=== PATIENT | male | born 1945 | race American Indian/Alaskan Native ===

== ENCOUNTER 2016-08-04 13:22 | Emergency (ER) | payer MEDICARE ==
--- NOTE | 2016-08-04 15:24 | XRay Report ---
LEFT HUMERUS: AP and lateral views of the humerus demonstrate normal mineralization and contours for this patient's age. No destructive changes are noted and the adjacent soft tissues are normal. Posterior dislocation of the left elbow is suspected and partially imaged. IMPRESSION: Normal left humerus. Dislocated left elbow.
--- NOTE | 2016-08-04 15:24 | XRay Report ---
LEFT SHOULDER: History: Shoulder pain. Routine views demonstrate normal bony and soft tissue structures with normal joint alignment of the shoulder. IMPRESSION: Normal study.
--- NOTE | 2016-08-04 15:25 | XRay Report ---
LEFT ELBOW, 3 views: History: Dislocation, pain The bony architecture is intact without evidence of fracture or dislocation. No significant soft tissue abnormality is seen. The posterior dislocation has been reduced. IMPRESSION: Anatomic alignment of the left elbow.
[2016-08-04] MEDS ORDERED: NORCO 5/325 PO ONE (16:35)
[2016-08-04] MEDS ORDERED: FLEXERIL PO ONE (16:39)
--- NOTE | 2016-08-04 16:39 | Emergency Department Report ---
ED Upper Extremity Inj HPI - General Chief Complaint: Fall Stated Complaint: FALL Time Seen by Provider: 08/04/16 16:12 Source: patient Mode of arrival: Ambulatory Limitations: No Limitations - History of Present Illness Initial Comments: 70-year-old male presents to the stating that he may have dislocated his arm. Patient states that he slipped and fell in the yard, breaking his fall with arm. Denies any fever, chills, nausea, vomiting, chest pain, shortness of breath, abdominal pain. Denies numbness, weakness, paresthesias. Denies history of surgeries or injuries to left arm. Patient describes his pain as 8 out of 10 and states he is unable to flex. MD Complaint: Injury to:: left, elbow -: Sudden Other Extremity Injury: Elbow: Left, Arm: Left, Forearm: Left Other Injuries: none Handedness: right Place: home, outdoors Severity scale (0 -10): 8 Improves With: none Worsens With: movement of extremity Context: fall Associated Symptoms: denies: weakness, numbness, neck pain, nausea/vomiting - Related Data Previous Rx's Medication Instructions Recorded Last Taken Type Acetaminophen/Codeine [Tylenol 1 tab PO Q6H PRN #24 tab 08/04/16 Unknown Rx /Codeine # 3 tab] Allergies Allergy/AdvReac Type Severity Reaction Status Date / Time No Known Allergies Allergy Unverified 08/04/16 14:16 ED Review of Systems ROS: Stated complaint: FALL Other details as noted in HPI Constitutional: denies: chills, fever, malaise Eyes: denies: eye pain ENT: denies: ear pain, throat pain, congestion Respiratory: denies: cough, shortness of breath, wheezing Cardiovascular: denies: chest pain, palpitations Endocrine: no symptoms reported Gastrointestinal: denies: abdominal pain, nausea, vomiting Musculoskeletal: arthralgia Neurological: denies: headache, weakness, numbness, paresthesias ED Past Medical Hx - Past Medical History Previous Medical History?: Yes Hx Hypertension: Yes - Surgical History Past Surgical History?: No - Social History Smoking Status: Never Smoker Substance Use Type: None - Medications Home Medications: Home Medications Medication Instructions Recorded Confirmed Last Taken Type Acetaminophen/Codeine [Tylenol 1 tab PO Q6H PRN #24 tab 08/04/16 Unknown Rx /Codeine # 3 tab] ED Physical Exam - General Limitations: No Limitations General appearance: alert, in no apparent distress - Head Head exam: Present: atraumatic, normocephalic - Eye Eye exam: Present: normal appearance, EOMI - ENT ENT exam: Present: normal exam, mucous membranes moist - Neck Neck exam: Present: normal inspection, full ROM. Absent: tenderness, lymphadenopathy - Respiratory Respiratory exam: Present: normal lung sounds bilaterally. Absent: respiratory distress, wheezes, rales, rhonchi - Cardiovascular Cardiovascular Exam: Present: regular rate, normal rhythm - GI/Abdominal GI/Abdominal exam: Present: soft. Absent: distended, tenderness, guarding, rebound, rigid - Expanded Upper Extremity Exam Left Shoulder Exam: Present: normal inspection, full ROM. Absent: swelling, abrasion , deformity Upper Arm exam: Present: normal inspection Elbow exam: Present: swelling, ecchymosis (ulnar aspect of elbow joint). Absent : full ROM (limited due to pain), tenderness, deformity, pain w/ pronation/ supination Forearm Wrist exam: Present: normal inspection, full ROM. Absent: tenderness, swelling, ecchymosis, tenderness over anatomical snuff box, pain with axial thumb loading Hand Wrist exam: Present: normal inspection, full ROM. Absent: tenderness, swelling, ecchymosis Neuro motor exam: Present: wrist extension intact, thumb opposition intact, thumb adduction intact, fingers 2-5 abduction intact Neurosensory exam: Present: 2-point discrimination Vascular: Present: normal capillary refill, radial pulse. Absent: vascular compromise - Back Exam Back exam: Present: normal inspection, full ROM - Neurological Exam Neurological exam: Present: alert, oriented X3 - Psychiatric Psychiatric exam: Present: normal affect, normal mood - Skin Skin exam: Present: warm, dry, intact ED Course Vital Signs 08/04/16 14:08 Temperature 98 F Pulse Rate 60 Respiratory 18 Rate Blood Pressure 138/66 O2 Sat by Pulse 95 Oximetry ED Medical Decision Making - Lab Data Vital Signs 08/04/16 14:08 Temperature 98 F Pulse Rate 60 Respiratory 18 Rate Blood Pressure 138/66 O2 Sat by Pulse 95 Oximetry - Radiology Data Radiology results: report reviewed LEFT SHOULDER: History: Shoulder pain. Routine views demonstrate normal bony and soft tissue structures with normal joint alignment of the shoulder. IMPRESSION: Normal study. LEFT HUMERUS: AP and lateral views of the humerus demonstrate normal mineralization and contours for this patient's age. No destructive changes are noted and the adjacent soft tissues are normal. Posterior dislocation of the left elbow is suspected and partially imaged. IMPRESSION: Normal left humerus. Dislocated left elbow. LEFT ELBOW, 3 views: History: Dislocation, pain The bony architecture is intact without evidence of fracture or dislocation. No significant soft tissue abnormality is seen. The posterior dislocation has been reduced. IMPRESSION: Anatomic alignment of the left elbow. - Medical Decision Making 62-year-old male presents today with left arm pain post-fall. He humerus x-ray revealed elbow dislocation, however at the time of the elbow x-ray the joint was not dislocated. On physical exam patient is neurovascularly intact. His elbow will be put in a posterior long-arm splint. Referral for orthopedic has been provided. Patient is in no acute distress at this time. He will be discharged home and is encouraged to follow up with a primary care provider. He will be sent home on tylenol 3 and is encouraged to return to the emergency room for any worsening symptoms. Critical care attestation.: If time is entered above; I have spent that time in minutes in the direct care of this critically ill patient, excluding procedure time. ED Disposition Clinical Impression: Elbow dislocation Qualifiers: Encounter type: initial encounter Laterality: left Qualified Code(s): S53.105A - Unspecified dislocation of left ulnohumeral joint, initial encounter Disposition: DISCHARGED TO HOME OR SELFCARE Is pt being admited?: No Does the pt Need Aspirin: No Condition: Stable Instructions: Elbow Dislocation (ED) Additional Instructions: Follow-up with primary care provider and orthopedic. Return to the emergency department if symptoms worsen. Prescriptions: Acetaminophen/Codeine [Tylenol /Codeine # 3 tab] 1 tab PO Q6H PRN #24 tab PRN Reason: Pain Referrals: BHUPENDRA VARELA MD [Primary Care Provider] - 3-5 Days MAX WISEMAN MD [Staff Physician] - 3-5 Days VITOR DOBSON MD [Staff Physician] - 3-5 Days Forms: Work/School Release Form(ED) Time of Disposition: 18:10
[2016-08-04 18:17] VITALS: BP 124/86
== END 2016-08-04 18:24 | disposition home or self-care (01) ==
LOC: ED 13:22
DX: S53.105A Unspecified dislocation of left ulnohumeral joint, initial encounter (principal); I10 Essential (primary) hypertension; W01.0XXA Fall on same level from slipping, tripping and stumbling without subsequent striking against object, initial encounter; Y93.9 Activity, unspecified; Y92.9 Unspecified place or not applicable; Y99.9 Unspecified external cause status
CPT/HCPCS: 99283